=== PATIENT | male | born 1955 | race Hispanic/Latino ===

== ENCOUNTER → 2019-05-16 | Day surgery (SDC) | payer OTHER ==
[2019-05-12 15:52] LABS: ANION GAP 10.6 mmol/L (8-16); BLOOD UREA NITROGEN 20 mg/dL (7-26); BUN/CREATININE RATIO 20 (6-25); CALCIUM 8.9 mg/dL (8.4-10.2); CARBON DIOXIDE 23 mmol/L (22-29); CHLORIDE 102 mmol/L (98-107); EST GLOMERULAR FILTRATION RATE > 60 ML/MIN (60-); GLUCOSE 177 mg/dL (74-118); POTASSIUM 3.6 mmol/L (3.5-5.1); SODIUM 132 mmol/L (136-145)
[~2019-05-16] MED LIST: CEFAZOLIN SOD 1 GM VIAL ONE; CRESTOR10 MG PO; DEXAMETHASONE SOD PHOS INJ 4 MG/ML VIAL ONE; EPINEPHRINE HCL 1:1000 1ML 1 MG/ML AMP ONE; FENTANYL CITRATE/PF 100MCG/2 ML INJ ONE; GLIMEPIRIDE2 MG PO; LIDOCAINE 1% W/EPINEPHRINE 20 ML VIAL ONE; LIDOCAINE HCL 2% LOCAL INJ 5 ML SDV VIAL INJ ONE; METFORMIN HCL500 MG PO; MIDAZOLAM HCL 2 MG/2 ML VIAL ONE; NIFEDIPINE ER30 M1 PO; ONDANSETRON HCL INJ 2MG/ML 2ML 2 MG/ML VIAL ONE; PROPOFOL IV EMULSION 10 MG/ML 20 ML VIAL ONE; SEVOFLURANE INHAL SOLN 250 ML PEN BTL ONE; SODIUM CHLORIDE 0.9% INJ 10 ML VIAL ONE; VALSARTAN-HCTZ1 EAC3 PO
[2019-05-16 09:10] VITALS: BP 131/74
--- NOTE | 2019-05-16 14:09 | Operative Report ---
DATE OF PROCEDURE: 05/16/2019 SURGEON: Bart Stinson MD PREOPERATIVE DIAGNOSIS: Right lower lateral facial skin mass. POSTOPERATIVE DIAGNOSIS: Right lower lateral facial skin mass. PROCEDURE: Excision of right lower lateral facial skin mass. SIGNIFICANT FINDINGS: Right lower lateral facial skin mass excised in its entirety and sent for permanent section analysis. PROPERTY APPRAISER: None. ANESTHESIA: General endotracheal tube anesthesia. SPECIMENS REMOVED: Right lower lateral facial skin mass. ESTIMATED BLOOD LOSS: Less than 5 mL. COMPLICATIONS: None. INDICATIONS: The patient is a 63-year-old [place] male with one year history of an enlarging, nontender, non-painful mass in the skin of the right lower lateral face and cheek. He is a nonsmoker. On examination, there is a circular 2.5 x 2.5 cm nontender mass in the skin of the right lower lateral face. He is scheduled for excision of the right lower lateral facial skin mass under general anesthesia. Risks and complications of the procedure were thoroughly discussed with the patient and his , and they include infection, bleeding, scarring, failure to improve, need for additional operations, possibility of malignancy and need for further surgery, possibility of recurrence and need for further surgery, paralysis of the right side of the face, poor cosmetic external appearance of the incision, need for blood transfusions, damage to surrounding nerves, blood vessels and muscles. They fully understand and gave consent. DESCRIPTION OF PROCEDURE: The patient was taken to the operating room and placed supine on the operating table, where general anesthesia was achieved through orotracheal intubation. Eyes were taped. Ancef antibiotics were administered intraoperatively. Injection with 3 mL of 1:100,000 epinephrine without lidocaine was then injected around the right lower lateral facial skin mass. This was then prepped and draped in the usual sterile fashion. Following this, an elliptical incision was then made around the skin mass, measuring greater than 2.5 cm in the short axis and 5 cm in long axis. The incision was made through the skin with a #15 blade. The skin at the ends of the ellipse was then excised with dissection. Soft tissues around the mass were then dissected, keeping the mass intact without violating it. This was then removed in its entirety and sent for permanent section analysis. Hemostasis was obtained with judicious use of bipolar cautery. Thorough irrigation was then performed. The wound was then repaired with interrupted 4-0 Monocryl in a subcuticular fashion, followed by Dermabond. The patient was awakened in the operating room, extubated, and taken to the recovery room in good condition. Bart Stinson MD JKY/MODL /[id number]
== END | disposition home or self-care (01) ==
LOC: OR 05:25
PROVIDERS: ATTEND Otolaryngology
DX: L72.0 Epidermal cyst (principal); E11.9 Type 2 diabetes mellitus without complications; I10 Essential (primary) hypertension; E78.00 Pure hypercholesterolemia, unspecified; Z01.810 Encounter for preprocedural cardiovascular examination; Z01.812 Encounter for preprocedural laboratory examination; Z79.84 Long term (current) use of oral hypoglycemic drugs
CPT/HCPCS: 11443; 12051; 36415 ×2; 80048; 82948; 88304; 93005; J0171; J0690; J1100; J2001; J2250; J2405; J2704; J3010